=== PATIENT | male | born 1945 | race Caucasian/White ===

== ENCOUNTER 2020-05-28 15:00 | Inpatient (IN) | payer MEDICARE ==
[~2020-05-28] VITALS: Ht 167.6 cm; Wt 53.2 kg
[2020-05-28 17:04] LABS: BASOPHILS ABSOLUTE AUTO 0.07 K/mm3 (0.00-0.23); BASOPHILS PERCENT AUTO 0 % (0-2); EOSINOPHILS ABSOLUTE AUTO 0.01 K/mm3 (0.00-0.68); EOSINOPHILS PERCENT AUTO 0 % (0-6); Hematocrit 23.4 % (37.0-53.0); Hemoglobin 7.5 g/dL (13.5-17.5); IMMATURE GRAN ABSOLUTE AUTO 0.15 K/mm3 (0.00-0.10); IMMATURE GRAN PERCENT AUTO 1 % (0-1); LYMPHOCYTES ABSOLUTE AUTO 1.94 K/mm3 (0.84-5.20); LYMPHOCYTES PERCENT AUTO 9 % (21-46); MONOCYTES ABSOLUTE AUTO 0.66 K/mm3 (0.16-1.47); MONOCYTES PERCENT AUTO 3 % (4-13); Mean Corpuscular HGB Conc 32.1 g/dL (31.5-36.5); Mean Corpuscular Volume 81 fL (80-100); Mean Platelet Volume 9.7 fL (9.1-12.4); NEUTROPHILS ABSOLUTE AUTO 17.81 K/mm3 (1.96-9.15); NEUTROPHILS PERCENT AUTO 86 % (41-73); Platelet Count 310 K/mm3 (150-400); RDW Coefficient Variation 16.6 % (11.7-14.2); RDW Standard Deviation 49.1 fL (35.1-46.3); Red Blood Cell Count 2.89 M/mm3 (4.30-5.90); White Blood Cell Count 20.64 K/mm3 (4.00-11.30)
[2020-05-28 17:33] LABS: Albumin, Blood 2.1 g/dL (3.4-5.0); Albumin/Globulin Ratio 0.4 (0.8-1.8); Bilirubin, Total 0.6 mg/dL (0.1-1.0); Bun/Creatinine Ratio 11.1 (12.0-20.0); Calcium, Blood 8.3 mg/dL (8.5-10.1); Creatinine, Blood 2.87 mg/dL (0.60-1.20); Globulin, Blood 5.8 g/dL (2.2-4.0); Potassium, Blood 1.7 mmol/L (3.5-5.5); Total Protein, Blood 7.9 g/dL (6.4-8.2)
[2020-05-28 18:22] LABS: Source, Urine Clean Catch
[2020-05-28 18:28] LABS: Appearance, Urine Turbid (Clear); Bilirubin, Urine Neg (Neg); Blood, Urine 5+ (Neg); Color, Urine Yellow (P-Yellow); Glucose Qualitative, Urine Neg (Neg); Ketones, Urine Neg (Neg); Leukocyte Esterase, Urine 3+ (Neg); Nitrite, Urine Neg (Neg); Protein, Urine 3+ (Neg); Specific Gravity, Urine 1.005 (1.003-1.022); Urobilinogen, Urine 1+ (Normal)
[2020-05-28 18:38] LABS: White Blood Cells, Urine TNTC /hpf (0-5)
[2020-05-28 18:41] LABS: Bacteria Many /hpf; Squamous Epithelial Cells Rare /hpf (Few)
[2020-05-28 20:10] LABS: Influenza A, PCR Negative (NEGATIVE); Influenza B, PCR Negative (NEGATIVE); Resp Syncytial Virus, PCR Negative (NEGATIVE); SARS-Cov-2 (COVID-19) PCR, MMC Negative (NEGATIVE)
[2020-05-28 21:15] LABS: Phosphorus, Blood 2.1 mg/dL (2.5-4.9)
[2020-05-28 22:00] LABS: Hematocrit 20.6 % (37.0-53.0); Hemoglobin 6.6 g/dL (13.5-17.5)
--- NOTE | 2020-05-29 01:19 | NUR ---
PATIENT IS A NEW ADMIT FROM THE ED. AXOX 3 AND FOUR PERSON TRANSFER FROM [facility] TO BED. IV PROTONIX INFUSING. PATIENT ORIENTED TO ROOM AND CALL LIGHT SYSTEM. DENIES ABDOMEN PAIN AND N/V. REPORTS SOB WITH EXERTION. BLOOD PRODUCT SLIP SENT TO LAB. ON ROOM AIR. CALL LIGHT IN REACH.
--- NOTE | 2020-05-29 01:22 | NUR ---
ONE UNIT OF PRBC INFUSING. IV PROTONIX INFUSING. POTASSIUM PHOSPHATE INFUSING. KCL PIGGYBACK INFUSING. PATIENT TOLERATING WELL. CALL LIGHT IN REACH.
--- NOTE | 2020-05-29 03:39 | NUR ---
GI CONSULT: ANSWERING SERVICE REPORTS TO CALL > 8 AM. PATIENT REPORTS NOT EXISTING PATIENT.
--- NOTE | 2020-05-29 03:47 | NUR ---
SHIFT SUMMARY PATIENT HAD NO ACUTE CHANGES OBSERVED. AXOX 3 AND ONE ASSIST TO BSC. PATIENT RECEIVED ONE UNIT PRBC AND TOLERATED WELL. IV PROTONIX INFUSING, KCL PIGGYBACK 2 OF 3 INFUSING, POTASSIUM PHOSPHATE INFUSING, AND KCL 20 MEQ INFUSING AT 75 mL/HR. PEDRO PATENT AND DRAINING TO GRAVITY. PATIENT DENIES PAIN AND N/V. SOB WITH EXERTION. THREE PIVS REMAIN INTACT. VSS/AFEBRILE. PATIENT REPORTS FEELING BETTER. GI CONSULT CALLED IN AND ANSWERING SERVICE REPORTS CALL BACK AFTER 8 AM FOR NON-EXISTING PATIENTS. CALL LIGHT IN REACH. BED IN LOWEST POSITION. WILL CONTINUE TO MONITOR UNTIL DAY SHIFT NURSE ASSUMES CARE.
[2020-05-29 05:28] LABS: BASOPHILS ABSOLUTE AUTO 0.05 K/mm3 (0.00-0.23); BASOPHILS PERCENT AUTO 0 % (0-2); EOSINOPHILS ABSOLUTE AUTO 0.14 K/mm3 (0.00-0.68); EOSINOPHILS PERCENT AUTO 1 % (0-6); Hematocrit 24.3 % (37.0-53.0); Hemoglobin 7.9 g/dL (13.5-17.5); IMMATURE GRAN ABSOLUTE AUTO 0.15 K/mm3 (0.00-0.10); IMMATURE GRAN PERCENT AUTO 1 % (0-1); LYMPHOCYTES ABSOLUTE AUTO 2.57 K/mm3 (0.84-5.20); LYMPHOCYTES PERCENT AUTO 16 % (21-46); MONOCYTES ABSOLUTE AUTO 0.92 K/mm3 (0.16-1.47); MONOCYTES PERCENT AUTO 6 % (4-13); Mean Corpuscular HGB 26.7 pg (26.0-34.0); Mean Corpuscular HGB Conc 32.5 g/dL (31.5-36.5); Mean Corpuscular Volume 82 fL (80-100); Mean Platelet Volume 9.8 fL (9.1-12.4); NEUTROPHILS ABSOLUTE AUTO 12.36 K/mm3 (1.96-9.15); NEUTROPHILS PERCENT AUTO 76 % (41-73); Platelet Count 251 K/mm3 (150-400); RDW Coefficient Variation 16.2 % (11.7-14.2); Red Blood Cell Count 2.96 M/mm3 (4.30-5.90); White Blood Cell Count 16.19 K/mm3 (4.00-11.30)
[2020-05-29 05:46] LABS: Albumin, Blood 1.7 g/dL (3.4-5.0); Anion Gap 6 mmol/L (6-16); Blood Urea Nitrogen 27 mg/dL (8-24); Bun/Creatinine Ratio 10.9 (12.0-20.0); CO2, Blood 33 mmol/L (21-32); Calcium, Blood 7.7 mg/dL (8.5-10.1); Chloride, Blood 106 mmol/L (98-108); Creatinine, Blood 2.48 mg/dL (0.60-1.20); Glomerular Filtration Rate 27 (60-); Glucose, Blood 78 mg/dL (70-99); Magnesium, Blood 1.9 mg/dL (1.6-2.4); Potassium, Blood 2.6 mmol/L (3.5-5.5); Sodium, Blood 145 mmol/L (136-145)
[2020-05-29 05:48] LABS: Phosphorus, Blood 5.4 mg/dL (2.5-4.9)
[2020-05-29 10:05] LABS: Hematocrit 25.2 % (37.0-53.0); Hemoglobin 8.1 g/dL (13.5-17.5)
--- NOTE | 2020-05-29 11:16 | NUR ---
DISCUSSED WITH PHARMACY REGARDING IV POTASSIUN. ADVISED TO STOP LITER OF NS WITH 20 MEQ OF K+ AND RUN THE 3 K RIDERS.
[2020-05-29 13:38] LABS: Hematocrit 24.1 % (37.0-53.0)
--- NOTE | 2020-05-29 16:22 | NUR ---
SHIFT SUMMARY NO ACUTE CHANGES T/O SHIFT, A&O, CALM ADN COOPERATIVE c CARE. PT HAS BEEN BECOMING MORE UPSET ABOUT THE FACT THAT HE IS NPO FOR A GI CONSULT, HOWEVER PT IS BEING PLEASANT ABOUT THE SITUATION. CONSULT WAS CALLED IN THIS AM AT APPROX 0830, CALLED BACK THIS AFTERNOON TO CONFIRM CONSULT WAS RECIEVED AND THEY VERIFIED THAT REGGIE RECIEVED THE CONSULT. PROTONIX AND IV POTASSIUM ARE CURRENTLY RUNNING, EACH IN A SEPERATE IV SITE. NS WITH KCL HAS BEEN STOPPED WHILE K RIDER RUNS PER PHARMACY RECOMMENDATION. WILLIS IS PATENT AND DRAINING. NO BM TODAY. COLACE AND SENDEONNAOT ORDRED LAST NIGHT, HELD THIS AM PER ISTRATE ORDERS AND PT BEING NPO. PT REPORTED NO PAIN T/O SHIFT. PT IS ON TELE - SR @ 71. PT IS CURRENTLY LYING IN BED WATCHING TV, CALL LIGHT WITHIN REACH.
[2020-05-30 05:15] LABS: BASOPHILS ABSOLUTE AUTO 0.07 K/mm3 (0.00-0.23); BASOPHILS PERCENT AUTO 1 % (0-2); EOSINOPHILS ABSOLUTE AUTO 0.22 K/mm3 (0.00-0.68); EOSINOPHILS PERCENT AUTO 2 % (0-6); Hematocrit 23.8 % (37.0-53.0); Hemoglobin 7.6 g/dL (13.5-17.5); IMMATURE GRAN ABSOLUTE AUTO 0.15 K/mm3 (0.00-0.10); IMMATURE GRAN PERCENT AUTO 1 % (0-1); LYMPHOCYTES ABSOLUTE AUTO 2.61 K/mm3 (0.84-5.20); LYMPHOCYTES PERCENT AUTO 22 % (21-46); MONOCYTES ABSOLUTE AUTO 0.79 K/mm3 (0.16-1.47); MONOCYTES PERCENT AUTO 7 % (4-13); Mean Corpuscular HGB 26.6 pg (26.0-34.0); Mean Corpuscular HGB Conc 31.9 g/dL (31.5-36.5); Mean Corpuscular Volume 83 fL (80-100); Mean Platelet Volume 10.2 fL (9.1-12.4); NEUTROPHILS ABSOLUTE AUTO 8.15 K/mm3 (1.96-9.15); NEUTROPHILS PERCENT AUTO 68 % (41-73); Platelet Count 263 K/mm3 (150-400); RDW Coefficient Variation 16.9 % (11.7-14.2); RDW Standard Deviation 51.8 fL (35.1-46.3); Red Blood Cell Count 2.86 M/mm3 (4.30-5.90); White Blood Cell Count 11.99 K/mm3 (4.00-11.30)
[2020-05-30 05:41] LABS: Albumin, Blood 1.8 g/dL (3.4-5.0); Albumin/Globulin Ratio 0.4 (0.8-1.8); Bilirubin, Total 0.3 mg/dL (0.1-1.0); Bun/Creatinine Ratio 10.2 (12.0-20.0); Calcium, Blood 7.7 mg/dL (8.5-10.1); Creatinine, Blood 2.46 mg/dL (0.60-1.20); Globulin, Blood 4.7 g/dL (2.2-4.0); Potassium, Blood 3.4 mmol/L (3.5-5.5); Total Protein, Blood 6.5 g/dL (6.4-8.2)
--- NOTE | 2020-05-30 06:00 | NUR ---
SHIFT SUMMARY- PT. A&O, PLEASANT, AND COOPERATIVE WITH CARE. 1 ASSIST TO BATHROOM, PT. WEAK AND IMPULSIVE AT TIMES. HAD NO ACUTE EVENTS THIS SHIFT. RECEIVED 3 K RIDERS FOR K OF 2.9, TOLERATED WELL. REPEAT K 3.4 THIS AM. PT. HAD NO COMPLAINTS T/O THE NIGHT. SLEPT MOST OF THE NIGHT, NO APPARENT DISTRESS NOTED. IV FLUIDS INFUSING WELL PROTONIX GTT. DR. REGGIE BYRNE CONSULTED ON PT. LAST NIGHT. PT. SCHEDULED FOR EGD TODAY, NPO @0600 PER ORDER. PT. MADE AWARE, VERBALIZED UNDERSTANDING. CALL LIGHT WITHIN REACH, SIDE RAILS UPX2, AND BED ALARM ON FOR SAFETY. WILL CONT TO MONITOR.
--- NOTE | 2020-05-30 07:51 | NUR ---
History, Chart, Medications and Allergies reviewed before start of procedure. ADMISSION TO UNIT STARTED VSS
--- NOTE | 2020-05-30 08:13 | NUR ---
05/30/20 0813 JoseBinu Dentures removed and placed in cup. PATIENT DETERMINED TO BE ASA APPROPRIATE FOR PROPOFOL SEDATION PRIOR TO START OF PROCEDURE BY . 3-LEAD EKG REVIEWED WITH PHYSICIAN PRIOR TO START OF PROCEDURE.Patient to ENDO 1History, Chart, Medications and Allergies reviewed before start of procedure.MONITOR INTACT WITH CONTINUOUS PULSE OXIMETRY AND INTERMITTENT BP.
--- NOTE | 2020-05-30 16:05 | NUR ---
SHIFT SUMMARY PATIENT HAS BEEN PLEASANT AND COOPERATIVE WITH STAFF. CONTINUES ON NS W/ 20MEQ OF KCL IVF AND IV ABX WITHOUT S/SX OF ADVERSE REACTIONS NOTED OR REPORTED. VITALS STABLE. S/P SCOPE WITHOUT ANY COMPLICATIONS. GOOD APPETITE. CALLS FOR STAFF ASSIST NEEDED. WILL CONTINUE TO MONITOR AND PROVIDE CARE NEEDED.
--- NOTE | 2020-05-31 05:11 | NUR ---
SHIFT SUMMARY NO ACUTE CHANGES TO REPORT THIS SHIFT. PT HAS RESTED WELL T/O THE NIGHT. IVF INFUSING ORDERED. PT HAS DENIED PAIN OR NEEDS FOR MOST OF THE NIGHT. PT CAN BE FORGETFUL, STILL VERY WEAK. BED ALARM IN PLACE FOR SAFETY. PEDRO PATENT AND DRAINING. ASSESSMENT HAS REMAINED UNCHANGED. BED IN LOWEST POSITION, CALL LIGHT WITHIN REACH.
[2020-05-31 05:17] LABS: BASOPHILS ABSOLUTE AUTO 0.06 K/mm3 (0.00-0.23); BASOPHILS PERCENT AUTO 1 % (0-2); EOSINOPHILS PERCENT AUTO 2 % (0-6); Hemoglobin 7.8 g/dL (13.5-17.5); IMMATURE GRAN ABSOLUTE AUTO 0.23 K/mm3 (0.00-0.10); IMMATURE GRAN PERCENT AUTO 2 % (0-1); LYMPHOCYTES ABSOLUTE AUTO 3.17 K/mm3 (0.84-5.20); LYMPHOCYTES PERCENT AUTO 30 % (21-46); MONOCYTES ABSOLUTE AUTO 0.55 K/mm3 (0.16-1.47); MONOCYTES PERCENT AUTO 5 % (4-13); Mean Corpuscular HGB 26.4 pg (26.0-34.0); Mean Corpuscular HGB Conc 31.2 g/dL (31.5-36.5); Mean Corpuscular Volume 85 fL (80-100); Mean Platelet Volume 10.3 fL (9.1-12.4); NEUTROPHILS ABSOLUTE AUTO 6.41 K/mm3 (1.96-9.15); NEUTROPHILS PERCENT AUTO 60 % (41-73); Platelet Count 269 K/mm3 (150-400); RDW Coefficient Variation 17.3 % (11.7-14.2); RDW Standard Deviation 53.7 fL (35.1-46.3); Red Blood Cell Count 2.95 M/mm3 (4.30-5.90); White Blood Cell Count 10.62 K/mm3 (4.00-11.30)
[2020-05-31 05:45] LABS: Albumin, Blood 1.8 g/dL (3.4-5.0); Albumin/Globulin Ratio 0.4 (0.8-1.8); Bilirubin, Total 0.3 mg/dL (0.1-1.0); Bun/Creatinine Ratio 8.7 (12.0-20.0); Calcium, Blood 7.6 mg/dL (8.5-10.1); Creatinine, Blood 2.29 mg/dL (0.60-1.20); Globulin, Blood 4.7 g/dL (2.2-4.0); Potassium, Blood 4.4 mmol/L (3.5-5.5); Total Protein, Blood 6.5 g/dL (6.4-8.2)
[2020-05-31] MEDS ORDERED: BISA10S PR (09:24)
[2020-05-31] MEDS ORDERED: ACET325 PO (09:24)
[2020-05-31] MEDS ORDERED: OMEP20ER PO (09:25)
[2020-05-31] MEDS ORDERED: DOCU100 PO (09:25)
[2020-05-31] MEDS ORDERED: POTCHL20ER PO (09:25)
[2020-05-31] MEDS ORDERED: ONDA4ODT MM (09:25)
[2020-05-31] MEDS ORDERED: CEPH500 PO (09:25)
[2020-05-31] MEDS ORDERED: VISBIOME PROBIOTIC PO (09:26)
[2020-05-31] MEDS ORDERED: SENN187 PO (09:26)
--- NOTE | 2020-05-31 13:04 | NUR ---
DISCHARGE REVIEWED WITH PT. HE VERBALIZED UNDERSTANDING OF MEDS AND APPOINTMENTS. RX FOR UROLOGIST REFERRAL HANDED TO PT. IV PULLED INTACT. TELE REMOVED. PT WHEELED TO DOOR AT 1255 BY ME.
== END 2020-05-31 13:00 | disposition home or self-care (01) | DRG 871 ==
LOC: ER 15:00 → MEDS 22:47 → ENPENDDIS 05-31 10:57 → MEDS 05-31 13:00
PROVIDERS: Family Medicine; Internal Medicine Gastroenterology; Nurse Practitioner Acute Care; Physician Assistant; ADMIT Internal Medicine
PROC: 0DB48ZX Excision of Esophagogastric Junction, Via Natural or Artificial Opening Endoscopic, Diagnostic (ICD-10-PCS; 2020-05-30)
PROC: 0CB7XZX Excision of Tongue, External Approach, Diagnostic (ICD-10-PCS; 2020-05-30)
PROC: 30233N1 Transfusion of Nonautologous Red Blood Cells into Peripheral Vein, Percutaneous Approach (ICD-10-PCS; 2020-05-30)
PROC: 0W3P8ZZ Control Bleeding in Gastrointestinal Tract, Via Natural or Artificial Opening Endoscopic (ICD-10-PCS; principal; 2020-05-30 08:45)
PROC: 0DB98ZX Excision of Duodenum, Via Natural or Artificial Opening Endoscopic, Diagnostic (ICD-10-PCS; 2020-05-30 08:45)
PROC: 0DBA8ZX Excision of Jejunum, Via Natural or Artificial Opening Endoscopic, Diagnostic (ICD-10-PCS; 2020-05-30 08:45)
DX: A40.1 Sepsis due to streptococcus, group B (principal); K20.91 Esophagitis, unspecified with bleeding; N17.9 Acute kidney failure, unspecified; N39.0 Urinary tract infection, site not specified; N13.6 Pyonephrosis; Z20.828 Contact with and (suspected) exposure to other viral communicable diseases; R65.20 Severe sepsis without septic shock; E87.6 Hypokalemia; F17.210 Nicotine dependence, cigarettes, uncomplicated; N18.30 Chronic kidney disease, stage 3 unspecified
CPT/HCPCS: 0241U; 36415; 36430; 51702; 74176; 80053; 80069; 81001; 82272; 83605; 83690; 83735; 84100; 84132; 85014; 85018; 85025; 86850; 86900; 86901; 86923; 87040; 88305; 88342; 96361-59; 96365-59; 96367-59; 96375-59; 99285-25; A9270; C9113; J0696; J2704; J3480; J7030; J7040; J7050; J7120; P9016

== ENCOUNTER → 2020-05-28 | Outpatient (CLI) | payer MEDICARE ==
[~2020-05-28] MED LIST: ACET325 PO; BISA10S PR; CEPH500 PO; DOCU100 PO; FUROSEMIDE40 MG PO; OMEP20ER PO; ONDA4ODT MM; POTCHL20ER PO; SENN187 PO; VISBIOME PROBIOTIC PO
[2020-05-28 14:05] LABS: Hematocrit 23.6 % (37.0-53.0); Hemoglobin 7.8 g/dL (13.5-17.5); Mean Corpuscular HGB 26.4 pg (26.0-34.0); Mean Corpuscular HGB Conc 33.1 g/dL (31.5-36.5); Mean Corpuscular Volume 80 fL (80-100); Mean Platelet Volume 9.6 fL (9.1-12.4); Platelet Count 338 K/mm3 (150-400); RDW Coefficient Variation 16.9 % (11.7-14.2); RDW Standard Deviation 48.3 fL (35.1-46.3); Red Blood Cell Count 2.95 M/mm3 (4.30-5.90); White Blood Cell Count 23.03 K/mm3 (4.00-11.30)
[2020-05-28 14:16] LABS: Albumin, Blood 2.3 g/dL (3.4-5.0); Albumin/Globulin Ratio 0.4 (0.8-1.8); Bilirubin, Total 0.6 mg/dL (0.1-1.0); Bun/Creatinine Ratio 9.6 (12.0-20.0); Calcium, Blood 8.6 mg/dL (8.5-10.1); Creatinine, Blood 3.44 mg/dL (0.60-1.20); Globulin, Blood 6.2 g/dL (2.2-4.0); Total Protein, Blood 8.5 g/dL (6.4-8.2)
[2020-05-28 14:18] LABS: Potassium, Blood 2.1 mmol/L (3.5-5.5)
[2020-05-28 14:34] LABS: BAND PERCENT MAN 15 % (0-8); BASOPHILS PERCENT MAN 0 % (0-2); EOSINOPHILS PERCENT MAN 0 % (0-6); LYMPHOCYTES ABSOLUTE MAN 1.84 K/mm3 (0.84-5.20); LYMPHOCYTES PERCENT MAN 8 % (21-46); MONOCYTES ABSOLUTE MAN 0.46 K/mm3 (0.16-1.47); MONOCYTES PERCENT MAN 2 % (4-13); NEUTROPHILS ABSOLUTE MAN 20.72 K/mm3 (1.96-9.15); SEG NEUTROPHILS PERCENT MAN 75 % (41-73); TOTAL CELLS COUNTED 100
== END ==
LOC: LAB SHORT 13:51 → LAB EV 13:51
PROVIDERS: Physician Assistant
DX: N39.0 Urinary tract infection, site not specified (principal); F44.89 Other dissociative and conversion disorders
CPT/HCPCS: 80053; 83690; 85025; 87077; 87086; 87147; 87186

== ENCOUNTER 2020-06-24 19:29 | Inpatient (IN) | payer OTHER, MEDICARE ==
[~2020-06-24] VITALS: Ht 167.6 cm; Wt 50.5 kg
[~2020-06-24 19:29] MED LIST changes: -FUROSEMIDE40 MG PO
[2020-06-24 19:42] LABS: PO2 Arterial 112 mmHg (80-100); pH Blood Arterial 7.41 (7.35-7.45)
[2020-06-24 20:03] LABS: Hematocrit 32.8 % (37.0-53.0); Hemoglobin 9.5 g/dL (13.5-17.5); Mean Corpuscular HGB 24.9 pg (26.0-34.0); Mean Corpuscular Volume 86 fL (80-100); Mean Platelet Volume 9.9 fL (9.1-12.4); Platelet Count 509 K/mm3 (150-400); RDW Coefficient Variation 17.2 % (11.7-14.2); RDW Standard Deviation 53.9 fL (35.1-46.3); Red Blood Cell Count 3.82 M/mm3 (4.30-5.90); White Blood Cell Count 22.87 K/mm3 (4.00-11.30)
[2020-06-24 20:17] LABS: International Normalized Ratio 0.94; Prothrombin Time Results 10.1 Sec (9.7-11.5)
[2020-06-24 20:22] LABS: Alanine Aminotransfer (ALT/SGP 38 U/L (12-78); Albumin/Globulin Ratio 0.6 (0.8-1.8); Alk Phos 126 U/L (50-136); Anion Gap 9 mmol/L (6-16); Aspartate Aminotrans (AST/SGOT 45 U/L (12-37); Bilirubin, Total 0.2 mg/dL (0.1-1.0); Blood Urea Nitrogen 31 mg/dL (8-24); Bun/Creatinine Ratio 17.1 (12.0-20.0); CO2, Blood 20 mmol/L (21-32); Calcium, Blood 8.8 mg/dL (8.5-10.1); Chloride, Blood 109 mmol/L (98-108); Creatinine, Blood 1.81 mg/dL (0.60-1.20); Ethanol (Alcohol), Blood, Med <3 mg/dL; Globulin, Blood 5.3 g/dL (2.2-4.0); Glomerular Filtration Rate 39 (60-); Glucose, Blood 103 mg/dL (70-99); Potassium, Blood 4.9 mmol/L (3.5-5.5); Sodium, Blood 138 mmol/L (136-145); Total Protein, Blood 8.3 g/dL (6.4-8.2)
[2020-06-24 20:37] LABS: BAND PERCENT MAN 1 % (0-8); BASOPHILS ABSOLUTE MAN 0.45 K/mm3 (0.00-0.23); BASOPHILS PERCENT MAN 2 % (0-2); EOSINOPHILS ABSOLUTE MAN 0.22 K/mm3 (0.00-0.68); EOSINOPHILS PERCENT MAN 1 % (0-6); LYMPHOCYTES ABSOLUTE MAN 1.14 K/mm3 (0.84-5.20); LYMPHOCYTES PERCENT MAN 5 % (21-46); MONOCYTES ABSOLUTE MAN 1.14 K/mm3 (0.16-1.47); MONOCYTES PERCENT MAN 5 % (4-13); NEUTROPHILS ABSOLUTE MAN 19.89 K/mm3 (1.96-9.15); SEG NEUTROPHILS PERCENT MAN 86 % (41-73); TOTAL CELLS COUNTED 100
[2020-06-24 21:03] LABS: Source, Urine Clean Catch
[2020-06-24] MEDS ORDERED: FUROSEMIDE40 MG PO (21:07)
[2020-06-24 21:08] LABS: Bilirubin, Urine Neg (Neg); Blood, Urine 5+ (Neg); Glucose Qualitative, Urine Neg (Neg); Ketones, Urine Neg (Neg); Leukocyte Esterase, Urine 3+ (Neg); Nitrite, Urine Neg (Neg); Protein, Urine 2+ (Neg); Urobilinogen, Urine NORM (Normal)
[2020-06-24 21:14] LABS: Appearance, Urine Clear (Clear); Color, Urine Pale Yellow (P-Yellow)
[2020-06-24 21:16] LABS: Bacteria Few /hpf; Squamous Epithelial Cells Rare /hpf (Few)
[2020-06-24 21:22] LABS: U Amphetamine Screen DETECTED; U Barbituate Screen Not Detected; U Benzodiazapine Screen Not Detected; U Buprenorphine Screen Not Detected; U Cannabinoids Screen Not Detected; U Cocaine Screen Not Detected; U Methadone Screen Not Detected; U Methamphetamine Screen DETECTED; U Opiates Screen Not Detected; U Oxycodone Screen Not Detected; U Phencyclidine Screen Not Detected; U Propoxyphene Screen Not Detected
[2020-06-24 23:28] LABS: Influenza A, PCR Negative (NEGATIVE); Influenza B, PCR Negative (NEGATIVE); Resp Syncytial Virus, PCR Negative (NEGATIVE); SARS-Cov-2 (COVID-19) PCR, MMC Negative (NEGATIVE)
--- NOTE | 2020-06-25 | NUR ---
ADMISSION NOTE RECEIVED HAND OFF FROM Kayleen GOMEZ RN USING SBAR. TRANSPORTED TO ROOM 214 VIA STRETCHER. TRANSFERED TO BED WITH FULL STAFF ASSISTAINCE, TOLERATED WELL. AAO X3, FOLLOWS ALL COMMANDS, HEATH EXCEPT RLE DUE TO DISPLACED FEMUR FX. RESPIRATIONS EVEN AND UNLABORED ON ROOM AIR. LUNG SOUNDS CLEAR BILATERALLY. ABDOMEN SOFT AND NONDISTENDED. BOWEL SOUNDS PRESENT IN ALL QUADS. RETENTION AND INCONTINENCE NOTED, ALSO REPORTED FREQUENT UTI'S REASON FOR INDWELLING CATH PLACED PER DR. BETHEA'S ORDERS. SCD'S TO BLE FOR VTE. SCATTERED CONTUSIONS AND ABRASIONS ON BODY. RIGHT LEG ELVATED ON PILLOW FOR COMFORT. GOOD DISTAL PULSES AND CAP REFILL < 3SEC. DENIES DISCOMFORT OR FURTHER NEEDS AT THIS TIME. ADMISSION ASSESSMENT IN PROGRESS. SAFETY MEASURES IN PLACE. WILL CONTINUE TO MONITOR.
[2020-06-25 05:03] LABS: BASOPHILS ABSOLUTE AUTO 0.14 K/mm3 (0.00-0.23); BASOPHILS PERCENT AUTO 1 % (0-2); EOSINOPHILS ABSOLUTE AUTO 0.21 K/mm3 (0.00-0.68); EOSINOPHILS PERCENT AUTO 2 % (0-6); Hematocrit 30.7 % (37.0-53.0); Hemoglobin 9.1 g/dL (13.5-17.5); IMMATURE GRAN ABSOLUTE AUTO 0.06 K/mm3 (0.00-0.10); IMMATURE GRAN PERCENT AUTO 1 % (0-1); LYMPHOCYTES ABSOLUTE AUTO 2.96 K/mm3 (0.84-5.20); LYMPHOCYTES PERCENT AUTO 24 % (21-46); MONOCYTES ABSOLUTE AUTO 1.19 K/mm3 (0.16-1.47); MONOCYTES PERCENT AUTO 10 % (4-13); Mean Corpuscular HGB 25.5 pg (26.0-34.0); Mean Corpuscular HGB Conc 29.6 g/dL (31.5-36.5); Mean Corpuscular Volume 86 fL (80-100); Mean Platelet Volume 9.8 fL (9.1-12.4); NEUTROPHILS ABSOLUTE AUTO 7.57 K/mm3 (1.96-9.15); NEUTROPHILS PERCENT AUTO 62 % (41-73); Platelet Count 410 K/mm3 (150-400); RDW Coefficient Variation 17.2 % (11.7-14.2); RDW Standard Deviation 53.5 fL (35.1-46.3); Red Blood Cell Count 3.57 M/mm3 (4.30-5.90); White Blood Cell Count 12.13 K/mm3 (4.00-11.30)
[2020-06-25 05:33] LABS: Bun/Creatinine Ratio 16.8 (12.0-20.0); Calcium, Blood 8.5 mg/dL (8.5-10.1); Creatinine, Blood 1.73 mg/dL (0.60-1.20); Potassium, Blood 5.1 mmol/L (3.5-5.5)
--- NOTE | 2020-06-25 06:06 | NUR ---
SHIFT SUMNARY LYING IN SEMI FOWLERS WITH EYES CLOSED, HAS RESTED WELL SINCE ADMISSION. AAO X3, FOLLOWS ALL COMMANDS, HEATH EXCEPT RLE. MEDICATED FOR RIGHT FEMOR PAIN PRN. IVF INFUSING TO RIGHT FA 18G PIV AT 100ML/HR PER MD ORDERS. LEFT AC 18G SL PIV IS PATENT, FLUSING WITH EASE. SCD'S TO BLE. PEDRO CATH DRAINING CLEAR YELLOW URINE TO GRAVITY. HAS BEEN NPO SINCE [address] ROY TO SEE HIM THIS AM. HAS C/O PAIN ONCE SINCE ADMISSION. GOOD DISTAL PULSES AND CAP REFILL NOTED TO BLE. DENIES FURTHER NEEDS OR WANTS AT THIS TIME. WAS UNWILLING TO SIGN ANY PAPERWORK STATING THAT HE JUST WANTED TO BE LET GO, STATING, "JUST LET ME GO, LET ME ." SAFETY MEASURES IN PLACE. WILL CONTINUE TO MONITOR AND GIVE HAND OFF TO ONCOMING SHIFT USING SBAR.
--- NOTE | 2020-06-25 12:56 | NUR ---
PT COMPLAINED OF PAIN AND WAS GIVEN FENTANYL PRIOR TO LEAVING ROOM FOR SURGERY. PT LEFT FOR SURGERY AT APPROXIMATELY 1250.
--- NOTE | 2020-06-25 13:06 | NUR ---
PATIENT WAS BROUGHT TO D/S FOR HIS PROCEDURE. History, Chart, Medications and Allergies reviewed before start of procedure.Lungs clear T/O to Auscultation. Patient confirms NPO status and agrees with scheduled surgery. Pre-Op teaching done. Pt verbalizes understanding.
--- NOTE | 2020-06-25 13:35 | NUR ---
PT RECEIVED FENTANYL PRIO TO TRANSFER FROM SURGICAL FLOOR TO [facility]. ASSUMED CARE AND RECEIVED REPORT FROM MANSOOR CORRIGAN RN. PT WAKE AND ANSWERS QUESTIONS WITH ORIENTED COGNITION. WILL PLACE FULL DENTURES IN PACU IN A CUP WITH A NAME TAG.
--- NOTE | 2020-06-25 14:47 | NUR ---
06/25/20 1447 Benita Braun PT CAME TO OR WITH PEDRO CATHETER IN PLACE
--- NOTE | 2020-06-25 16:25 | NUR ---
DENIES PAIN OR NAUSEA PT NOW AWAKE ENOUGH TO LET ME KNOW WHERE HE IS FEELING SENSATION. HE TELLS ME IT FEELS GOOD TO NOT HURT . HAS SENSATION TO THE TOP OF BOTH FEET BILAT PPP CAP REFILL WNL
--- NOTE | 2020-06-25 16:48 | NUR ---
PT ARRIVED BACK TO THE ROOM POST-OP. HE IS DROWSY BUT WAKES TO VERBAL STIMULI AND RESPONDS APPROPRIATELY TO QUESTIONS. PT HAD SPINAL ANESTHESIA, UNABLE TO MOVE HIS FEET AT THIS TIME. PEDAL PULSES WEAK BUT EQUAL BILATERALLY, NO CHANGE FROM PRE OP. PT IS ON RA. RESTING WITH EYES CLOSE. VSS. WILL CONTINUE TO MONITOR.
--- NOTE | 2020-06-25 19:50 | NUR ---
SHIFT SUMMARY PT HAS BEEN SLEEPING SINCE HE ARRIVED BACK TO THE ROOM POST-OP. PT IS PLEASANT AND AWAKENS WHEN SPOKEN TO. HE DENIES PAIN. REPORT GIVEN TO MASSIEL NGUYEN.
--- NOTE | 2020-06-25 23:00 | NUR ---
RECEIVED HAND OFF FROM Sarah POOLE RN USING SBAR. LYING IN SEMI FOWLERS WITH EYES CLOSED. AAO X3, HEATH, FOLLOWS ALL COMMANDS. POD #0 FOR RIGHT FEMOR REDUCTION, DRESSING C/D/I. ABLE TO WIGGLE TOES AND DENIES N/T, GOOD CAP REFILL NOTED. DENIES PAIN, DISCOMFORT, OR FURTHER NEEDS AT THIS TIME. SAFETY MEASURES IN PLACE. WILL CONTINUE TO MONITOR.
[2020-06-26 05:17] LABS: BASOPHILS ABSOLUTE AUTO 0.08 K/mm3 (0.00-0.23); BASOPHILS PERCENT AUTO 1 % (0-2); EOSINOPHILS ABSOLUTE AUTO 0.09 K/mm3 (0.00-0.68); EOSINOPHILS PERCENT AUTO 1 % (0-6); Hematocrit 28.9 % (37.0-53.0); Hemoglobin 8.4 g/dL (13.5-17.5); IMMATURE GRAN ABSOLUTE AUTO 0.06 K/mm3 (0.00-0.10); IMMATURE GRAN PERCENT AUTO 1 % (0-1); LYMPHOCYTES ABSOLUTE AUTO 2.59 K/mm3 (0.84-5.20); LYMPHOCYTES PERCENT AUTO 23 % (21-46); MONOCYTES ABSOLUTE AUTO 1.12 K/mm3 (0.16-1.47); MONOCYTES PERCENT AUTO 10 % (4-13); Mean Corpuscular HGB 24.3 pg (26.0-34.0); Mean Corpuscular HGB Conc 29.1 g/dL (31.5-36.5); Mean Corpuscular Volume 84 fL (80-100); Mean Platelet Volume 10.3 fL (9.1-12.4); NEUTROPHILS ABSOLUTE AUTO 7.25 K/mm3 (1.96-9.15); NEUTROPHILS PERCENT AUTO 65 % (41-73); Platelet Count 397 K/mm3 (150-400); RDW Coefficient Variation 17.1 % (11.7-14.2); RDW Standard Deviation 52.2 fL (35.1-46.3); Red Blood Cell Count 3.45 M/mm3 (4.30-5.90); White Blood Cell Count 11.19 K/mm3 (4.00-11.30)
[2020-06-26 05:40] LABS: Bun/Creatinine Ratio 13.8 (12.0-20.0); Calcium, Blood 8.2 mg/dL (8.5-10.1); Creatinine, Blood 1.74 mg/dL (0.60-1.20); Potassium, Blood 4.5 mmol/L (3.5-5.5)
--- NOTE | 2020-06-26 06:01 | NUR ---
SHIFT SUMNARY LYING IN SEMI FOWLERS WITH EYES CLOSED, HAS RESTED WELL. AAO X3, FOLLOWS ALL COMMANDS, HEATH. RIGHT FA 18G PIV IS PATENT, FLUSHING WITH EASE WHILE INFUSING D5 NS WITH 20MEQ KCL PER MD ORDERS. LEFT AC 18G SL PIV IS PATENT, FLUSING WITH EASE. SCD'S TO BLE. PEDRO CATH DRAINING CLEAR YELLOW URINE TO GRAVITY. MEDICATED FOR PAIN X1 THIS SHIFT. DRESSING IS C/D/I, GOOD DISTAL PULSES AND CAP REFILL NOTED TO BLE. DENIES FURTHER NEEDS OR WANTS AT THIS TIME. SAFETY MEASURES IN PLACE. WILL CONTINUE TO MONITOR AND GIVE HAND OFF TO ONCOMING SHIFT USING SBAR.
--- NOTE | 2020-06-26 06:38 | NUR ---
PEDRO D/C ORDER PEDRO D/C ORDER NOTED, PT HAS CHRONIC INDWELLING CATH ORDERED AND PLACED PER DR. BETHEA. WILL HAVE DAY SHIFT NURSING VERIFIY ORDER.
--- NOTE | 2020-06-26 16:17 | NUR ---
SHIFT SUMMARY PT WORKED WITH THERAPY TODAY AND HAS BEEN UP IN CHAIR. AQUACEL DRESSING TO HIP CDI. 1 PAIN PILL FOR PAIN MANAGEMENT Q4P. DEVONTE REG DIET. PEDRO DRAINING CLEAR YELLOW URINE. IVF INFUSING PER ORDERS. CARE MANAGEMENT IN CONTACT WITH PT'S NIECE REGARDING DISCHARGE PLANNING. CALL LIGHT WITHIN REACH.
--- NOTE | 2020-06-27 05:07 | NUR ---
SHIFT SUMMARY PT IS A/O X4. 2X MOD ASSIST TO GET OUT OF BED. HAS BEEN REPOSITIONING SELF SOMEWHAT AND ASSISTED MULT TIMES OVERNIGHT. PAIN MANAGED WITH PO PAIN MED PER ORDERS. TOLERATING PO INTAKE. PEDRO IN PLACE, STAT LOCK ON. PT HAS BEEN RESTING IN BED WITH CALL LIGHT IN REACH.
--- NOTE | 2020-06-27 08:51 | NUR ---
OT HERE TO WORK WITH PT.
--- NOTE | 2020-06-27 10:23 | NUR ---
THERAPY IN ROOM.
--- NOTE | 2020-06-27 11:15 | NUR ---
DISCUSSED PT'S STATUS WITH DR STEWARD INCLUDING PEDRO. DR REPORTED TO LEAVE PEDRO IN PLACE HE HAS A CHRONIC INDWELLING PEDRO.
--- NOTE | 2020-06-27 16:06 | NUR ---
SHIFT SUMMARY PT EATING AND DRINKING, PRODUCING URINE. PT HAS PEDRO IN PLACE, BEEN OFF FLOOR. PT BEEN ASSISTED WITH ADL'S PRN. PT BEEN WATCHING TV/NAPPING WHEN NOT DISTURBED. LINEN/GOWN CHANGED PER PT REQ. PT ALARM IN PLACE. PT REMAINED ORIENTED THIS AFTERNOON. CALL LIGHT IN REACH.
--- NOTE | 2020-06-28 04:12 | NUR ---
SHIFT SUMMARY POD 3 R HIP REPAIR PT AAOX3/4. SLIGHT CONFUSION WHEN FIRST AWAKENING BUT REORIENTS WELL. MEDICATED FOR PAIN PER EMAR. REPOSITIONS WELL IN BED, HELPS WITH MOVEMENT. DRESSING CDI. TOLERATING PO WELL. PEDRO PATENT AND DRAINING DURIGN SHIFT.
--- NOTE | 2020-06-28 16:28 | NUR ---
SHIFT SUMMARY PT A0X3. POD3 FOR CLOSED RIF. VSS. PT HAS 3 AQUACEL DRESSING ON R HIP, REMAIN CDI. PT PAIN MANAGED WITH 1 NORCO Q4. TTWB ON R LEG, DENIES NUMBNESS AND TINGLING SENSATION. DEVONTE AMBULATION FAIRLY WELL W/ MOD 1 ASSIST. PT WORKED W/ PT AND OT TODAY. HE DID FAIRLY WELL, PLAN TO DC TO SNF, AWAITING FOR PLACEMENT. INDWELLING CATH STILL IN PLACE, PATENT, INTACT. IV ON L AC STILL PATENT AND FLUSHING WELL. PT IS VOIDING ADEQUATELY. PT REPORTS PASSING FLATUS, DENIES BM TODAY. DEVONTE REGULAR DIET DENIES N/V. PT UP IN CHAIR, HAD AMBULATE IN ROOM X1. CALL LIGHT W/IN REACH.
--- NOTE | 2020-06-29 04:50 | NUR ---
SHIFT SUMMARY POD 4 AA0X4. PT SLEEPING DURING THE NIGHT, MEDICATED FOR PAIN X1, STATES TOLERABLE DURING NIGHT. REPOSITIONING IN BED. PEDRO PATENT AND DRAINING. TOLERATING PO WELL. AWAITING PLACEMENT FOR DISCHARGE.
[2020-06-29 11:19] LABS: Percent Saturation 6.6 % (20.0-50.0)
--- NOTE | 2020-06-29 15:55 | NUR ---
SUMMARY NO ACUTE CHANGES THUS FAR THIS SHIFT. PT SAT UP FOR BREAKFAST. MEDICATED PER ORDERS T/O SHIFT FOR PAIN. SLEPT OFF AND ON T/O SHIFT. DRESSING TO R HIP CDI. MEDICATED PER ORDERS TO FACILITATE BM. CALL LIGHT IN REACH.
--- NOTE | 2020-06-29 16:22 | NUR ---
REPORTED OFF TO ALPHONSO Santos RN.
--- NOTE | 2020-06-29 17:20 | NUR ---
ASSUMED CARE OF PT, CURRENTLY SLEEPING, RESP. REGULAR, CONT. TO MONITOR FOR ANY CHANGES.
[2020-06-30 03:42] LABS: BASOPHILS ABSOLUTE AUTO 0.13 K/mm3 (0.00-0.23); BASOPHILS PERCENT AUTO 1 % (0-2); EOSINOPHILS ABSOLUTE AUTO 0.31 K/mm3 (0.00-0.68); EOSINOPHILS PERCENT AUTO 2 % (0-6); Hemoglobin 9.1 g/dL (13.5-17.5); IMMATURE GRAN ABSOLUTE AUTO 0.14 K/mm3 (0.00-0.10); IMMATURE GRAN PERCENT AUTO 1 % (0-1); LYMPHOCYTES ABSOLUTE AUTO 2.23 K/mm3 (0.84-5.20); LYMPHOCYTES PERCENT AUTO 17 % (21-46); MONOCYTES ABSOLUTE AUTO 0.87 K/mm3 (0.16-1.47); MONOCYTES PERCENT AUTO 7 % (4-13); Mean Corpuscular HGB 24.7 pg (26.0-34.0); Mean Corpuscular HGB Conc 30.3 g/dL (31.5-36.5); Mean Corpuscular Volume 81 fL (80-100); Mean Platelet Volume 9.3 fL (9.1-12.4); NEUTROPHILS ABSOLUTE AUTO 9.26 K/mm3 (1.96-9.15); NEUTROPHILS PERCENT AUTO 72 % (41-73); Platelet Count 470 K/mm3 (150-400); RDW Standard Deviation 47.8 fL (35.1-46.3); Red Blood Cell Count 3.69 M/mm3 (4.30-5.90); White Blood Cell Count 12.94 K/mm3 (4.00-11.30)
[2020-06-30 04:01] LABS: Albumin, Blood 2.4 g/dL (3.4-5.0); Albumin/Globulin Ratio 0.4 (0.8-1.8); Bilirubin, Total 0.4 mg/dL (0.1-1.0); Bun/Creatinine Ratio 24.4 (12.0-20.0); Calcium, Blood 8.6 mg/dL (8.5-10.1); Creatinine, Blood 1.72 mg/dL (0.60-1.20); Globulin, Blood 5.4 g/dL (2.2-4.0); Potassium, Blood 4.1 mmol/L (3.5-5.5); Total Protein, Blood 7.8 g/dL (6.4-8.2)
--- NOTE | 2020-06-30 04:11 | NUR ---
SHIFT SUMMARY POD 5 PT AA0X4, DRESSING CDI. PT MEDICATED FOR PAIN PER EMAR, PAIN RELIEVED DURING SHIFT WITH REPOSITIONING. PT ABLE TO MOVE SELF IN BED, REQUESTED HELP X1. PEDRO PATENT AND DRAINING. PT TOLERATING PO WELL. PLAN FOR PATIENT IS TO FIND PLACEMENT.
--- NOTE | 2020-06-30 14:12 | NUR ---
PT RUBBING R THIGH STATED MUSCLE IS SORE. OFFERED ICE PACK; PT DECLINED. CALL LIGHT IN REACH.
--- NOTE | 2020-06-30 15:10 | NUR ---
CARE ASSUMED OF PT AT 1445. PT ALERT AND PLEASANT. CONFUSED AT TIMES. BED ALARM IN PLACE. WILL CONTINUE TO MONITOR.
--- NOTE | 2020-06-30 18:28 | NUR ---
SHIFT SUMMARY NO ACUTE CHANGES TO REPORT SINCE CARE ASSUMED. PT IS TAKING NORCO TO MANAGE PAIN. 1 PERSON ASSIST WITH GAIT BELT AND WALKER. PT IS WAITING FOR PLACEMENT.
--- NOTE | 2020-07-01 06:37 | NUR ---
SUMMARY PT WITH INTERMITTENT CONFUSION TONIGHT.APPEARED INCREASED AFTER RECEIVING DILAUDID 0.2 MG FOR PAIN.PT SITTING SELF ON EDGE OF BED SETTING OFF ALARM RATHER THAN CALLING FOR HELP.AT THIS TIME, PT IS AWAKE RESTING IN BED.WATCHING TV.
--- NOTE | 2020-07-01 19:53 | NUR ---
SHIFT SUMMARY PT AOX3. INTERMITTENT CONFUSION BUT APPROPRIATE IN ANSWERING QUESTION. REPORTS MINIMAL PAIN T/O. PAIN MANAGED W/ 5MG NORCO. WORKED WELL W/ THERAPIST TODAY. ENEMA ADMINSTERED TODAY AND HAD A LARGE BM. DEVONTE REG DIET DENIES N/V. AWAITING FOR PLACEMENT IN [place]. CALL LIGHT W/IN REACH. PT RESTING COMFORTABLE IN BED.
[2020-07-02 04:03] LABS: BASOPHILS ABSOLUTE AUTO 0.16 K/mm3 (0.00-0.23); BASOPHILS PERCENT AUTO 1 % (0-2); EOSINOPHILS ABSOLUTE AUTO 0.25 K/mm3 (0.00-0.68); EOSINOPHILS PERCENT AUTO 2 % (0-6); Hematocrit 31.5 % (37.0-53.0); Hemoglobin 9.4 g/dL (13.5-17.5); IMMATURE GRAN PERCENT AUTO 2 % (0-1); LYMPHOCYTES ABSOLUTE AUTO 3.37 K/mm3 (0.84-5.20); LYMPHOCYTES PERCENT AUTO 26 % (21-46); MONOCYTES ABSOLUTE AUTO 0.85 K/mm3 (0.16-1.47); MONOCYTES PERCENT AUTO 7 % (4-13); Mean Corpuscular HGB 24.7 pg (26.0-34.0); Mean Corpuscular HGB Conc 29.8 g/dL (31.5-36.5); Mean Corpuscular Volume 83 fL (80-100); Mean Platelet Volume 9.8 fL (9.1-12.4); NEUTROPHILS ABSOLUTE AUTO 8.02 K/mm3 (1.96-9.15); NEUTROPHILS PERCENT AUTO 63 % (41-73); Platelet Count 452 K/mm3 (150-400); RDW Coefficient Variation 16.5 % (11.7-14.2); RDW Standard Deviation 49.1 fL (35.1-46.3); Red Blood Cell Count 3.81 M/mm3 (4.30-5.90); White Blood Cell Count 12.85 K/mm3 (4.00-11.30)
[2020-07-02 04:21] LABS: Bun/Creatinine Ratio 28.7 (12.0-20.0); Calcium, Blood 8.6 mg/dL (8.5-10.1); Creatinine, Blood 1.57 mg/dL (0.60-1.20); Potassium, Blood 4.4 mmol/L (3.5-5.5)
--- NOTE | 2020-07-02 06:40 | NUR ---
SHIFT SUMMARY: RUDY IS ALERT AND ORIENTED X 3 THIS MORNING. VSS, NO ACUTE EVENTS OVERNIGHT. PEDRO DRAINING CLEAR, YELLOW URINE. AQUACELL INTACT. HE MOVES HIMSELF WITHOUT DIFFICULTY IN BED. HE IS TOLERATING PO INTAKE WELL, ABLE TO SWALLOW PILLS WITHOUT DIFFICULTY. HE IS LYING IN BED WITH HIS CALL LIGHT IN REACH, WILL REPORT TO DAY SHIFT RN.
--- NOTE | 2020-07-02 15:33 | NUR ---
SHIFT SUMMARY NO ACUTE CHANGES THIS SHIFT. 1 NORCO FOR PAIN PRN. AQUACEL DRESSING REMAINS CDI. CHRONIC PEDRO DRAINING CLEAR YELLOW URINE. UP TO CHAIR + AMBULATION TODAY WITH THERAPIES. CARE MANAGEMENT WORKING ON SNF PLACEMENT. CALL LIGHT WITHIN REACH.
--- NOTE | 2020-07-02 23:04 | NUR ---
PATIENT WAKES TO VERBAL STIMULI. HE HAS NO COMPLAINTS OF PAIN. REPOSTITIONED IN BED. CHRONIC PEDRO CATH IS DRAINING WELL. MEPLIEX TO COCCYX FOR PROTECTION. CALL LIGHT IN REACH
--- NOTE | 2020-07-03 05:34 | NUR ---
PATIENT SLEPT UNTIL ABOUT 4AM. ATE A FEW SNACKS AT THE BEDSIDE AND IS NOW BACK TO SLEEP. RT HIP PAIN IS CONTROLLED WITH PO PAIN MEDICATION. PEDRO CATH IS DRAINING WELL. NO ACUTE CHANGES. CALL LIGHT IN REACH, HOWEVER PATIENT DOES NOT USE IT.
[2020-07-03 11:24] LABS: Source, Urine Catheter
[2020-07-03 11:27] LABS: Appearance, Urine Clear (Clear); Bilirubin, Urine Neg (Neg); Blood, Urine Neg (Neg); Color, Urine Yellow (P-Yellow); Glucose Qualitative, Urine Neg (Neg); Ketones, Urine Neg (Neg); Leukocyte Esterase, Urine 3+ (Neg); Nitrite, Urine Neg (Neg); Protein, Urine Neg (Neg); Specific Gravity, Urine 1.005 (1.003-1.022); Urobilinogen, Urine NORM (Normal)
[2020-07-03 11:38] LABS: Bacteria Few /hpf; Red Blood Cells, Urine 0-2 /hpf (0-2); Squamous Epithelial Cells Rare /hpf (Few)
--- NOTE | 2020-07-03 13:52 | NUR ---
SPOKE WITH RULA IN DISCHARGE PLANNING AT THIS TIME. PT NEEDS TO COMPLETE MEDICAID PROCESS PRIOR TO DISCHARGE- RULA IS WORKING TO HAVE PT COMPLETE.
--- NOTE | 2020-07-03 18:37 | NUR ---
SUMMARY: NO CHANGE TODAY. VSS, A/O. 1 ASSIST WITH FWW TO BATHROOM. PT HAD SMALL BM TODAY. SURGICAL SITE WNL, REPORTS MINIMAL PAIN. WORKED WITH PT/OT. SEE PREVIOUS NOTE FOR PLAN. NO SAFETY CONCERNS.
[2020-07-04 04:46] LABS: Hemoglobin 8.9 g/dL (13.5-17.5); Mean Corpuscular HGB 24.7 pg (26.0-34.0); Mean Corpuscular HGB Conc 29.7 g/dL (31.5-36.5); Mean Corpuscular Volume 83 fL (80-100); Mean Platelet Volume 10.4 fL (9.1-12.4); Platelet Count 510 K/mm3 (150-400); RDW Coefficient Variation 17.5 % (11.7-14.2); RDW Standard Deviation 50.8 fL (35.1-46.3); Red Blood Cell Count 3.61 M/mm3 (4.30-5.90); White Blood Cell Count 12.63 K/mm3 (4.00-11.30)
--- NOTE | 2020-07-04 13:17 | NUR ---
PHONE NUMBER FOR BRIE PER PT: [phone].
--- NOTE | 2020-07-04 16:37 | NUR ---
SUMMARY: NO CHANGE TODAY, A/O, VSS. PT CONTINUES TO WORK WELL WITH PT/OT. DENIED NEED FOR PAIN MED TODAY. UP TO CHAIR AND UP IN ROOM FREQUENTLY. SURGICAL SITE WNL. AWAITING DC PLAN/PLACEMENT. NO SAFETY CONCERNS.
--- NOTE | 2020-07-05 11:22 | NUR ---
115 ORDERS RECEIVED TO DC WILLIS SPOKE TO OTHER REAL ESTATE ECONOMIST WHO TELLS ME THAT PATIENT HAD PEDRO IN PLACE AT TIME OF ADMISSION THAT WAS ORDERED BY DR BETHEA FOR MEDICAL CONDITION. ORDERS RECEIVED TO LEAVE PEDRO IN PLACE AT THIS TIME
--- NOTE | 2020-07-05 17:37 | NUR ---
summary pt reports pain is adequately controlled. standby assist with walker and gait belt for ambulation. pt maintains toe touch weight bearing when given verbal instructions. bed alarm in place, pt at times sits up on edge of bed but has not attempted to get oob and uses call light for needs
[2020-07-06 04:41] LABS: BASOPHILS ABSOLUTE AUTO 0.12 K/mm3 (0.00-0.23); BASOPHILS PERCENT AUTO 1 % (0-2); EOSINOPHILS ABSOLUTE AUTO 0.27 K/mm3 (0.00-0.68); EOSINOPHILS PERCENT AUTO 3 % (0-6); Hematocrit 31.3 % (37.0-53.0); Hemoglobin 9.2 g/dL (13.5-17.5); IMMATURE GRAN ABSOLUTE AUTO 0.14 K/mm3 (0.00-0.10); IMMATURE GRAN PERCENT AUTO 1 % (0-1); LYMPHOCYTES ABSOLUTE AUTO 3.06 K/mm3 (0.84-5.20); LYMPHOCYTES PERCENT AUTO 30 % (21-46); MONOCYTES ABSOLUTE AUTO 0.65 K/mm3 (0.16-1.47); MONOCYTES PERCENT AUTO 6 % (4-13); Mean Corpuscular HGB Conc 29.4 g/dL (31.5-36.5); Mean Corpuscular Volume 85 fL (80-100); Mean Platelet Volume 10.3 fL (9.1-12.4); NEUTROPHILS ABSOLUTE AUTO 5.87 K/mm3 (1.96-9.15); NEUTROPHILS PERCENT AUTO 58 % (41-73); Platelet Count 427 K/mm3 (150-400); RDW Coefficient Variation 18.2 % (11.7-14.2); RDW Standard Deviation 55.8 fL (35.1-46.3); Red Blood Cell Count 3.68 M/mm3 (4.30-5.90); White Blood Cell Count 10.11 K/mm3 (4.00-11.30)
--- NOTE | 2020-07-06 04:46 | NUR ---
SHIFT SUMMARY PT IS A/O X4. BED ALARM ON FOR ADDITIONAL SAFTEY OVERNIGHT. USING 1X ASSIST WITH FWW UP TO BATHROOM FOR BM'S. HE HAS ALSO BEEN UP TO THE CHAIR SEVERAL TIMES DURING THE SHIFT. PEDOR IN PLACE, PATENT, DRAINING YELLOW URINE. PT TOLERATING PO INTAKE W/O NAUSEA. TAKING TYLENOL FOR PAIN PRN. NO ACUTE CHANGES OVERNIGHT. PT RESTING IN BED AT THIS TIME WITH CALL LIGHT IN REACH.
[2020-07-06 05:02] LABS: Anion Gap 7 mmol/L (6-16); Blood Urea Nitrogen 54 mg/dL (8-24); Bun/Creatinine Ratio 29.3 (12.0-20.0); CO2, Blood 26 mmol/L (21-32); Calcium, Blood 8.6 mg/dL (8.5-10.1); Chloride, Blood 104 mmol/L (98-108); Creatinine, Blood 1.84 mg/dL (0.60-1.20); Glomerular Filtration Rate 38 (60-); Glucose, Blood 96 mg/dL (70-99); Potassium, Blood 4.5 mmol/L (3.5-5.5); Prostate Specific Antigen 0.011 ng/mL (0.000-4.000); Sodium, Blood 137 mmol/L (136-145)
--- NOTE | 2020-07-06 17:49 | NUR ---
SHIFT SUMMARY PT EATING AND DRINKING, PT HAS PEDRO. PT REPORTED HAVING BM THIS AM. PT BEEN ASSISTED WITH ADL'S PRN. PT WORKED WITH THERAPY TODAY. PT BEEN UP TO CHAIR, PT HAD NAP IN BED. PT NOW IN CHAIR EATING DINNER, TAB ALARM IN PLACE. PT CONT TO HAVE PEDRO IN PLACE, OFF FLOOR.
--- NOTE | 2020-07-07 04:05 | NUR ---
SHIFT SUMMARY POD#12. AAOX4. DISCOMFORT CONTROLLED WITH TYLENOL Q6H. NO NAUSEA/EMESIS. DRESSING TO RIGHT HIP C/D/I. PPP, DENIES N/T + MOVES TOES WELL BLE. PT REPOSITIONS SELF WELL IN BED + UP TO DANGLE AT BEDSIDE INDEPENDENTLY. GOOD PO INTAKE + PEDRO CATHETER IN PLACE, PATENT/DRAINING CLEAR YELLOW. PT RESTED WELL THIS SHIFT + IS CURRENTLY RESTING IN BED WITH CALL LIGHT IN REACH.
--- NOTE | 2020-07-07 10:50 | NUR ---
DISCUSSED PT'S STATUS WITH REHABILITATION ENGINEER.
--- NOTE | 2020-07-07 11:37 | NUR ---
DISCUSSED PT'S STATUS WITH GLASS DEPOSITION TENDER WHO REPORTS TALKING WITH PT'S FRIEND WHO REPORTED TALKING TO FRIEND WHO REPORTED THAT FRIEND REPORTED WOULD BE PICKING UP PT TODAY IF PT ABLE TO DISCHARGE TODAY. GLASS DEPOSITION TENDER REPORTS TALKING TO DR GARCIA WHO REPORTED WILL BE PLACING D/C ORDERS AND WILL WRITE FOR SCRIPT FOR WALKER. GRAIN OILSEED OR PASTURE FARM MANAGER REPORTS WILL CONT TO ASSIST WITH PT INCLUDING FINDING HOME HEALTH IN [facility].
[2020-07-07] MEDS ORDERED: ACET325 PO (12:47)
[2020-07-07] MEDS ORDERED: TAMS.4ER PO (12:48)
[2020-07-07] MEDS ORDERED: DUTA.5 PO (12:48)
--- NOTE | 2020-07-07 13:21 | NUR ---
PT ASSISTED WITH DRESSING PT IN [facility]. PT'S DRESSINGS TO R HIP CHANGED. NEW DRESSINGS FOR AT HOME PLACED IN BELONGINGS BAG. PT ASSISTED WITH ADL'S PRN.
--- NOTE | 2020-07-07 16:23 | NUR ---
PT UP IN CHAIR. PT BEEN ASSISTED WITH ADL'S PRN. PT TOOK WALK TODAY IN [place] WITH ASSIST AND WALKER. PT BEEN EATING AND DRINKING, TOLERATING DIET. PT PAIN BEEN TOLERABLE WITH PO TYLENOL AND ICE TO HIP. DRESSINGS TO R HIP CHANGED TODAY. PT USING CALL LIGHT APPR. PT WAITING ON FRIEND TO ARRIVE FROM [place] TO [place] PT HIS PLAN IS TO D/C TODAY WHEN THEY GET HERE HE IS TO GO STAY WITH HIS FRIEND IN [place]. PT REPORTS FRIEND HAS RAMP TO GET IN TO THEY'RE HOUSE.
--- NOTE | 2020-07-07 18:20 | NUR ---
DISCHARGE INCLUDING NOTE REGARDING DISCHARGE MEDICATIONS: PT EATING AND DRINKING, PT HAS PEDRO WHICH PT IS PRODUCING URINE WELL. PT HAS HAD RECENT BM. PT REPORTS UNDERSTANDING OF DISCHARGE INSTRUCTIONS. PT REPORTS UNDERSTANDING OF PEDRO HE REPORTS HE HAS TAKEN CARE OF IT FOR A WHILE. PT SENT WITH BELONGINGS INCLUDING PHONE, LEGAL INSTRUMENTS EXAMINER, WELL OTHER BELONGINGS. PT SENT WITH DRESSINGS AND PEDRO SUPPLIES. PT'S FRIEND HERE TO GET PT, REPORTS WILL BE PICKING UP WALKER IN [facility]. PT REPORTS UNDERSTANDING OF HOME HEALTH WHICH EMPLOYEE BENEFITS MANAGER WAS ASSISTING WITH. DISCHARGE MEDICATIONS; FRIEND REPORTED THAT HE WOULD E [employer] ARCHITECT MEDICATIONS AT [facility] IN [place] WHICH MEDICATIONS WERE CALLED INTO THAT PHARMACY. WHEN PT FRIEND ARRIVED HE REPORTED HE WAS UNABLE TO E [employer] THE MEDICATIONS AND REQUESTED SINCE THAT PHARMACY IS NOW CLOSED THAT THE MEDICATIONS BE CALLED TO -[facility]. [facility] WAS CALLED, THEY WERE CLOSED, MESSAGE WAS LEFT THAT PT WOULD NOT BE PICKING UP THE MEDICATIONS AND THAT THEY WOULD BE CALLED TO ANOTHER PHARMACY. [facility] IN [place] ON [facility] WAS CALLED, MESSAGE LEFT REGARDING THE MEDICATIONS TO BE FILLED.
== END 2020-07-07 18:41 | disposition home or self-care (01) | DRG 480 ==
LOC: ER 19:29 → SURS 21:46
PROVIDERS: Emergency Medicine; Internal Medicine; Orthopaedic Surgery; ADMIT Surgery
PROC: 0QH634Z Insertion of Internal Fixation Device into Right Upper Femur, Percutaneous Approach (ICD-10-PCS; principal; 2020-06-25 13:30)
DX: S72.141A Displaced intertrochanteric fracture of right femur, initial encounter for closed fracture (principal); E43 Unspecified severe protein-calorie malnutrition; T83.592A Infection and inflammatory reaction due to indwelling ureteral stent, initial encounter; N39.0 Urinary tract infection, site not specified; D62 Acute posthemorrhagic anemia; N13.30 Unspecified hydronephrosis; Z68.1 Body mass index [BMI] 19.9 or less, adult; F15.10 Other stimulant abuse, uncomplicated; F17.210 Nicotine dependence, cigarettes, uncomplicated; E86.0 Dehydration; N18.30 Chronic kidney disease, stage 3 unspecified; S02.2XXA Fracture of nasal bones, initial encounter for closed fracture; K59.00 Constipation, unspecified; V47.0XXA Car driver injured in collision with fixed or stationary object in nontraffic accident, initial encounter; J44.9 Chronic obstructive pulmonary disease, unspecified; K21.00 Gastro-esophageal reflux disease with esophagitis, without bleeding; K26.7 Chronic duodenal ulcer without hemorrhage or perforation
CPT/HCPCS: 0241U; 29505; 36415; 36600; 51702; 70450; 71045; 71260; 72125; 72170; 73706; 74177; 80048; 80053; 81001; 82728; 82803; 83540; 83550; 83690; 83735; 85025; 85027; 85610; 87077; 87086; 87147; 87186; 90670; 96365-59; 96375-59; 96376-59; 97110; 97116; 97162; 97166; 97530; 97535; 99285-25; A9270; A9270-GY; C1713; C1769; C9113; G0103; G0480; J0690; J0696; J1170; J1650; J2370; J2405; J2704; J2916; J3010; J3360; J7030; Q2038; Q9967